=== PATIENT | male | born 2005 | race Caucasian/White ===

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

== ENCOUNTER 2023-06-16 09:32 | Emergency (ER) | payer BC, SELFPAY ==
--- NOTE | ~2023-06-16 | CT_ITS ---
EXAMINATION: CT IAC/mastoids BI wo con DATE: 06/16/2023 12:19 INDICATION: Left ear pain TECHNIQUE: Computed tomography (CT) of the temporal bones was performed without intravenous contrast. The dose-length product was 302.71 mGy-cm. COMPARISON: None FINDINGS: RIGHT TEMPORAL BONE: External auditory canal is normal. The mastoid air cells and middle ear cavities are clear with no fl uid or soft tissue densities. The tympanic membrane, ossicular chain, oval window, cochlea, vestibule , semicircular canals, vestibular aqueduct, scutum and Prussak's space are normal. The course of the facial nerve appears normal. There is mild hypertrophic change of the bone along the entrance to the external auditory canal. Carotid canal and jugular bulb are unremarkable. 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 This involves the mastoid process, lateral half of the petrous portion of the temporal bone extendi ng into the squamosal portion of the petrous bone and base of the zygomatic arch. This is characteriz ed by mild expansion of the bone and decreased density of the bone with loss of the cortical medullar y differentiation and diffuse groundglass appearance to the bone. The region of the affected bone spa res the petrous apex and the bone surrounding the internal auditory canal, cochlea and immediately chen rrounding the labyrinth. There is marked narrowing of the external auditory canal the small amount of which is occluded by sof t tissue density. The tympanic membrane, ossicular chain, oval window, cochlea, vestibule, semicircul ar canals, vestibular aqueduct scutum and Prussak's space are normal. The facial nerve canal extends through the affected portion of the temporal bone and demonstrates irregular margins but no significa nt stenosis.. Very small left mastoid effusion. No fluid in the earlier cavity. Carotid canal and jug ular bulb are unremarkable. IMPRESSION: 1. 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 2. Tiny left mastoid effusion. 3. Normal right temporal bone. Reviewed, dictated and finalized at location A. IMPRESSION: 1. 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 2. Tiny left mastoid effusion. 3. Normal right temporal bone.
[2023-06-16 11:24] VITALS: BP 144/89; PULSE 75; RESP 15; O2SAT 100
--- NOTE | 2023-06-16 12:13 | ED.GENADULT ---
HPI - General Adult General Chief complaint: Ear Stated complaint: ear pain Time Seen by Provider: 06/16/23 11:21 History of Present Illness HPI narrative: Matheus Freitas is a 18 y/o male who presents today with his mom. Patient and mom explain that he hit his left ear on the counter as he stumbled out of the shower about a year ago. Then over the past 1-2 months he has had increased pain to his left ear ( inner ear) that has been off and on in severity along with some headaches. He has been to urgent cares a couple times/ PCPs / and an ENT who wanted a CT scan because there was concern for something blocking the view of his TM/ swelling / tumor vs questionable fracture but they haven't been able to get the CT yet and he started having more symptoms of pain last night and they decided to come here to get the CT and get a new referral to ENT as they state the would like to follow with Dr. Grubbs. Related Data Allergies Allergy/AdvReac Type Severity Reaction Status Date / Time No Known Allergies Allergy Verified 06/16/23 11:24 Review of Systems Review of Systems: All systems reviewed & are unremarkable except as noted in HPI and below PMFSH Past Medical History Medical History No pertinent past medical history Family History Family History Grandparent Liver tumor or cancer Social History Social History Social History: Single Smoking status: Never smoker Second hand tobacco smoke exposure: No Alcohol intake: never Substance use: never Substance use type: does not use Do You Feel Safe in your Home?: Yes Lack of Transportation: No Lack of Food: Never True Current Housing: I Have Housing Concerned About Future Housing: No Difficulty Paying Gas/Electric Bills: No Difficulty Paying for Meds: No Currently Unemployed: No Education: Trade/Vocational Certificate Difficulty w/ Childcare or Family Care: No Living arrangements: with family Occupation/Education: occupation Additional occupation/education comments: Warehouse Receiver Gender identity (if verbalized by the patient): Male Sexual Orientation (if Verbalized by the Patient): Straight or Heterosexual Exam Narrative: GENERAL: Well-appearing, well-nourished, and in no acute distress. HEAD: Normocephalic, atraumatic. EYES: PERRLA and EOMI. ENT: Nares clear, no rhinorrhea or epistaxis. Mucous membranes moist. Oropharynx without tonsillar hypertrophy exudate or other lesions. Right TM pearly peraza / left ear canal + edema with slight erythema - no mastoid tenderness NECK: Supple. No adenopathy or masses. No carotid bruits or JVD CHEST: Clear to auscultation. No respiratory distress. No wheezes rales or rhonchi HEART: Regular rate and rhythm. No murmur heard. Normal peripheral pulses. ABDOMEN: Soft, nontender, nondistended, normal active bowel sounds. EXTREMITIES: Normal range of motion. No edema. SKIN: Warm, dry, no rash. NEURO: No focal deficits. Alert and oriented x3. PSYCH: Normal mood and affect. Course Vital Signs Vital signs: Vital Signs Pulse Rate 75 06/16/23 11:24 Respiratory Rate 15 06/16/23 11:24 Blood Pressure 144/89 H 06/16/23 11:24 Pulse Oximetry 100 06/16/23 11:24 Pulse Rate 61 06/16/23 14:07 Respiratory Rate 14 06/16/23 14:07 Blood Pressure 118/74 06/16/23 14:07 Pulse Oximetry 100 06/16/23 14:07 Medical Decision Making [facility] Narrative Medical decision making narrative: Patient is here to get the CT that was recommended by his ENT / and to get a new ENT referral Patient has been on a couple rounds of steroids and antibiotics and based on the exam I don't feel that more steroids and antibiotics are necessary at this time. Will order the CT to evaluate for fracture/ mastoiditis/ foreign body and will refer pt to
[2023-06-16 14:07] VITALS: BP 118/74; PULSE 61; RESP 14; O2SAT 100
[2023-06-16 14:55] VITALS: BP 114/70; PULSE 62; RESP 16; TEMP 36.9; O2SAT 100
== END 2023-06-16 14:56 | disposition home or self-care (01) ==
PROVIDERS: Emergency Provider Nurse Practitioner Family; PCP Family Medicine
DX: M85.08 Fibrous dysplasia (monostotic), other site (principal); H91.8X2 Other specified hearing loss, left ear
CPT/HCPCS: 70480; 99284

== ENCOUNTER 2023-08-20 05:47 | Emergency (ER) | payer BC, SELFPAY ==
[2023-08-20 05:56] VITALS: BP 111/68; PULSE 89; RESP 18; TEMP 36.8; O2SAT 97
[2023-08-20 06:01] VITALS: BP 111/68; PULSE 89; RESP 18; TEMP 36.8; O2SAT 100
--- NOTE | 2023-08-20 06:43 | ED.GENADULT ---
HPI - General Adult General Chief complaint: Wound/Laceration Stated complaint: L hand laceration Time Seen by Provider: 08/20/23 06:09 History of Present Illness HPI narrative: She is a 18-year-old male who presents to the emergency department this morning after sustaining a left hand laceration. Patient states that he was walking and accidentally cut himself with a piece of metal. 4 cm laceration to the dorsum of his left hand. Patient admits that his tetanus shot is up-to-date within the last 5 years. He denies any additional injuries or concerns at this time. Related Data Allergies Allergy/AdvReac Type Severity Reaction Status Date / Time No Known Allergies Allergy Verified 08/20/23 06:00 Review of Systems Review of Systems: All systems are reviewed and are negative unless stated otherwise in the HPI. [facility] Past Medical History Medical History No pertinent past medical history Family History Family History Grandparent Liver tumor or cancer Social History Social History Social History: Single Smoking status: Never smoker Second hand tobacco smoke exposure: No Alcohol intake: never Substance use: never Substance use type: does not use Do You Feel Safe in your Home?: Yes Lack of Transportation: No Lack of Food: Never True Current Housing: I Have Housing Concerned About Future Housing: No Difficulty Paying Gas/Electric Bills: No Difficulty Paying for Meds: No Currently Unemployed: No Education: Trade/Vocational Certificate Difficulty w/ Childcare or Family Care: No Living arrangements: with family Occupation/Education: occupation 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 Cardiovascular: Regular rate and rhythm, no murmurs, rubs or gallops, no peripheral edema. Respiratory: Clear to auscultation bilaterally, no tachypnea, no wheezing, no rhonchi, no rubs, no respiratory distress. Abdomen: Soft, nontender, nondistended, no rebound, no guarding, no peritoneal signs. Musculoskeletal: No joint swelling or deformity, normal muscle tone. Skin: 4 cm linear laceration to the dorsum of the left hand, no active bleeding, the patient is neurovascularly intact. Neurological: Alert and oriented to person, place, and time. Follows all commands. No focal deficits, speech is clear and fluent. Course Vital Signs Vital signs: Vital Signs Temperature 98.2 F 08/20/23 05:56 Pulse Rate 89 08/20/23 05:56 Respiratory Rate 18 08/20/23 05:56 Blood Pressure 111/68 08/20/23 05:56 Pulse Oximetry 97 08/20/23 05:56 Oxygen Delivery Room Air 08/20/23 05:56 Temperature 98.2 F 08/20/23 06:01 Pulse Rate 89 08/20/23 06:01 Respiratory Rate 18 08/20/23 06:01 Blood Pressure 111/68 08/20/23 06:01 Pulse Oximetry 100 08/20/23 06:01 Oxygen Delivery Room Air 08/20/23 05:56 Procedures Laceration Laceration 1: Date: 08/20/23 Time: 07:21 Site: hand Side (If applicable): left Size (cm): 4 Description: linear Depth: simple, single layer Local Anesthetic: lidocaine 1% Amount of anesthesia used (mL): 4 Pre-repair: wound explored, irrigated, deep structures intact and wound margins revised ====== Skin Level ====== Skin layer closed with: nylon Size (cm): 5-0 Number of sutures: 8 Technique: simple, interrupted ====== Subcutaneous Layer ====== ====== Muscle Layer ====== ====== Tendon Layer ====== Medical Decision Making MDM Narrative Medical decision making narra
== END 2023-08-20 07:46 | disposition home or self-care (01) ==
PROVIDERS: Emergency Provider Emergency Medicine; PCP Family Medicine
DX: S61.412A Laceration without foreign body of left hand, initial encounter (principal); W26.8XXA Contact with other sharp object(s), not elsewhere classified, initial encounter
CPT/HCPCS: 12002; 99282